=== PATIENT | female | born 1945 | race Two or more races ===

== ENCOUNTER → 2016-10-23 | Outpatient (CLI) | payer OTHER ==
[2016-10-23 09:34] LABS: Basophils # (auto) 0.1 uL; Basophils % (auto) 0.9 % (0.0-2.0); DEFINITIVE VIEW TRANSMISSION; Eosinophils # (auto) 0.4 uL; Eosinophils % (auto) 7.4 % (0.0-7.0); Hematocrit 45.2 % (36.0-46.0); Lymphocytes # (auto) 1.8 uL; Lymphocytes % (auto) 31.1 % (10.0-50.0); Mean Corpuscular Hemoglobin 27.8 pg (28.0-32.0); Mean Corpuscular Volume 89.6 fL (80.0-100.0); Mean Platelet Volume 9.1 fL (7.4-10.4); Monocytes # (auto) 0.5 uL; Monocytes % (auto) 8.2 % (0.0-12.0); Neutrophils # (auto) 3.1 uL; Neutrophils % (auto) 52.4 % (37.0-80.0); Platelet Count (auto) 348 10^3/uL (140-450); Red Cell Distribution Width 15.9 % (11.6-16.0); White Blood Cell 5.9 10^3/uL (4.4-10.8)
[2016-10-23 09:37] LABS: Urine Bilirubin Negative (Negative); Urine Blood Negative /uL (Negative); Urine Color Yellow (Yellow); Urine Glucose Normal (Normal); Urine Ketone Negative (Negative); Urine Mucus FEW (None Seen); Urine Nitrite Negative (Negative); Urine RBC 3 /hpf (0 - 4); Urine Squamous Epithelial Cell MANY /hpf (<5); Urine Urobilinogen Normal (Negative)
[2016-10-23 10:03] LABS: BUN/Creatinine Ratio 20.7; Bilirubin, Total 0.3 mg/dL (0.2-1.0); Calcium 9.1 mg/dL (8.5-10.1); Potassium 4.4 mmol/L (3.5-5.1); Total Protein 7.8 g/dL (6.4-8.2)
== END | disposition home or self-care (01) ==
LOC: LAB 08:34
PROVIDERS: ATTEND Internal Medicine
DX: I10 Essential (primary) hypertension (principal); Z12.11 Encounter for screening for malignant neoplasm of colon; N25.81 Secondary hyperparathyroidism of renal origin; N18.3 Chronic kidney disease, stage 3 (moderate)
CPT/HCPCS: 36415; 80053; 80061; 81001; 82270; 83036; 84439; 84443; 85025

== ENCOUNTER → 2017-12-02 | Outpatient (CLI) | payer OTHER ==
[2017-12-02 08:21] LABS: Basophils # (auto) 0.1 uL; Basophils % (auto) 1.2 % (0.0-2.0); Eosinophils # (auto) 0.4 uL; Eosinophils % (auto) 6.7 % (0.0-7.0); Hematocrit 44.5 % (36.0-46.0); Hemoglobin 14.7 g/dL (12.2-16.2); Lymphocytes # (auto) 1.7 uL; Lymphocytes % (auto) 27.9 % (10.0-50.0); Mean Corpuscular Hemoglobin 29.5 pg (28.0-32.0); Mean Corpuscular Hgb Conc. 33.1 g/dL (32.0-36.0); Mean Corpuscular Volume 89.3 fL (80.0-100.0); Monocytes # (auto) 0.4 uL; Monocytes % (auto) 6.1 % (0.0-12.0); Neutrophils # (auto) 3.6 uL; Neutrophils % (auto) 58.1 % (37.0-80.0); Nucleated Red Blood Cells % 0.2 %; Platelet Count (auto) 285 10^3/uL (140-450); Red Blood Cells 4.99 10^6/uL (4.0-5.20); Red Cell Distribution Width 14.7 % (11.8-14.3); White Blood Cell 6.2 10^3/uL (4.4-10.8)
[2017-12-02 08:51] LABS: Albumin 4.1 g/dL (3.4-5.0); BUN/Creatinine Ratio 19.7; Bilirubin, Total 0.3 mg/dL (0.2-1.0); Calcium 9.1 mg/dL (8.5-10.1); Potassium 4.5 mmol/L (3.5-5.1); Total Protein 8.1 g/dL (6.4-8.2)
== END | disposition home or self-care (01) ==
LOC: LAB 07:26
PROVIDERS: ATTEND Physician Assistant
DX: Z00.01 Encounter for general adult medical examination with abnormal findings (principal); I10 Essential (primary) hypertension; E03.9 Hypothyroidism, unspecified; E78.2 Mixed hyperlipidemia; N25.81 Secondary hyperparathyroidism of renal origin; R73.03 Prediabetes
CPT/HCPCS: 36415; 80053; 80061; 82270; 83036; 84443; 85025

== ENCOUNTER → 2018-06-22 | Outpatient (CLI) | payer OTHER ==
[2018-06-22 08:08] LABS: Basophils # (auto) 0.1 uL; Basophils % (auto) 1.3 % (0.0-2.0); Eosinophils # (auto) 0.3 uL; Hematocrit 45.1 % (36.0-46.0); Lymphocytes # (auto) 1.4 uL; Lymphocytes % (auto) 29.2 % (10.0-50.0); Mean Corpuscular Hemoglobin 29.5 pg (28.0-32.0); Mean Corpuscular Hgb Conc. 33.4 g/dL (32.0-36.0); Mean Corpuscular Volume 88.5 fL (80.0-100.0); Monocytes # (auto) 0.4 uL; Monocytes % (auto) 8.2 % (0.0-12.0); Neutrophils # (auto) 2.7 uL; Neutrophils % (auto) 54.3 % (37.0-80.0); Nucleated Red Blood Cells % 0.1 %; Platelet Count (auto) 279 10^3/uL (140-450); Red Blood Cells 5.09 10^6/uL (4.0-5.20); Red Cell Distribution Width 14.9 % (11.8-14.3); White Blood Cell 4.9 10^3/uL (4.4-10.8)
[2018-06-22 08:36] LABS: Calcium 9.5 mg/dL (8.5-10.1); Potassium 4.6 mmol/L (3.5-5.1)
[2018-06-22 08:42] LABS: Albumin 3.9 g/dL (3.4-5.0); BUN/Creatinine Ratio 16.5; Bilirubin, Total 0.6 mg/dL (0.2-1.0); Total Protein 7.8 g/dL (6.4-8.2)
== END | disposition home or self-care (01) ==
LOC: LAB 07:56
PROVIDERS: ATTEND Physician Assistant
DX: E03.9 Hypothyroidism, unspecified (principal); E79.0 Hyperuricemia without signs of inflammatory arthritis and tophaceous disease; E78.2 Mixed hyperlipidemia; R73.03 Prediabetes; I12.9 Hypertensive chronic kidney disease with stage 1 through stage 4 chronic kidney disease, or unspecified chronic kidney disease; N18.3 Chronic kidney disease, stage 3 (moderate)
CPT/HCPCS: 36415; 80053; 80061; 83036; 84443; 84550; 85025

== ENCOUNTER → 2018-12-19 | Outpatient (CLI) | payer OTHER ==
[2018-12-19 12:51] LABS: Free T4 (Free Thyroxine) 1.59 ng/dL (0.89-1.76); T3 Total 0.77 ng/mL (0.60-1.81)
== END | disposition home or self-care (01) ==
LOC: LAB 10:29
PROVIDERS: ATTEND Physician Assistant
DX: E78.2 Mixed hyperlipidemia (principal); E03.9 Hypothyroidism, unspecified; E55.9 Vitamin D deficiency, unspecified
CPT/HCPCS: 36415; 82306; 83735; 84439; 84443; 84480

== ENCOUNTER → 2019-02-27 | Outpatient (CLI) | payer OTHER | END | disposition home or self-care (01) | LOC: LAB 14:06 | PROVIDERS: ATTEND Physician Assistant | DX: Z12.11 Encounter for screening for malignant neoplasm of colon (principal) | CPT/HCPCS: 82270 ==

== ENCOUNTER → 2019-10-23 | Outpatient (CLI) | payer OTHER ==
[2019-10-23 07:49] LABS: Basophils # (auto) 0 uL; Basophils % (auto) 0.9 % (0.0-2.0); Eosinophils # (auto) 0.3 uL; Eosinophils % (auto) 6.3 % (0.0-7.0); Hematocrit 45.5 % (36.0-46.0); Hemoglobin 15.3 g/dL (12.2-16.2); Lymphocytes # (auto) 1.4 uL; Lymphocytes % (auto) 26.1 % (10.0-50.0); Mean Corpuscular Hemoglobin 30.5 pg (28.0-32.0); Mean Corpuscular Hgb Conc. 33.7 g/dL (32.0-36.0); Mean Corpuscular Volume 90.4 fL (80.0-100.0); Monocytes # (auto) 0.4 uL; Neutrophils # (auto) 3.2 uL; Neutrophils % (auto) 58.7 % (37.0-80.0); Platelet Count (auto) 265 10^3/uL (140-450); Red Blood Cells 5.03 10^6/uL (4.0-5.20); Red Cell Distribution Width 14.4 % (11.8-14.3); White Blood Cell 5.5 10^3/uL (4.4-10.8)
[2019-10-23 08:31] LABS: Albumin 3.9 g/dL (3.4-5.0); Calcium 9.5 mg/dL (8.5-10.1); Potassium 4.2 mmol/L (3.5-5.1); Uric Acid 7.6 mg/dL (2.6-6.0)
[2019-10-23 08:36] LABS: BUN/Creatinine Ratio 19.1; Bilirubin, Total 0.5 mg/dL (0.2-1.0); Total Protein 7.8 g/dL (6.4-8.2)
[2019-10-23 09:25] LABS: Free T4 (Free Thyroxine) 1.35 ng/dL (0.89-1.76); T3 Total 0.94 ng/mL (0.60-1.81)
== END | disposition home or self-care (01) ==
LOC: LAB 07:31
PROVIDERS: ATTEND Physician Assistant
DX: I12.9 Hypertensive chronic kidney disease with stage 1 through stage 4 chronic kidney disease, or unspecified chronic kidney disease (principal); N18.3 Chronic kidney disease, stage 3 (moderate); E03.9 Hypothyroidism, unspecified; E55.9 Vitamin D deficiency, unspecified; E79.0 Hyperuricemia without signs of inflammatory arthritis and tophaceous disease; E78.2 Mixed hyperlipidemia
CPT/HCPCS: 36415; 80053; 80061; 82306; 84439; 84443; 84480; 84550; 85025

== ENCOUNTER → 2021-11-10 | Outpatient (CLI) | payer OTHER ==
[2021-11-10 10:35] LABS: Urine WBC None Seen /hpf (0 - 5)
[2021-11-10 11:01] LABS: Potassium 3.9 mmol/L (3.5-5.1)
[2021-11-10 11:03] LABS: INR 0.99 (0.9-1.15); Partial Thromboplastin Time 27.6 sec (23.6-33.0)
[2021-11-10 11:11] LABS: Albumin 3.7 g/dL (3.4-5.0); BUN/Creatinine Ratio 19.6; Calcium 9.1 mg/dL (8.5-10.1)
[2021-11-10 11:14] LABS: Bilirubin, Total 0.4 mg/dL (0.2-1.0); Total Protein 7.1 g/dL (6.4-8.2)
[2021-11-10 11:15] LABS: Urine Bacteria NONE SEEN /hpf (None Seen); Urine Blood Negative /uL (Negative); Urine Specific Gravity 1.016 (1.001-1.035)
[2021-11-10 11:26] LABS: Basophils # (auto) 0 10 ^3/uL (0-0.2); Basophils % (auto) 0.8 % (0.0-2.0); Eosinophils # (auto) 0.3 10 ^3/uL (0-0.8); Eosinophils % (auto) 6.6 % (0.0-7.0); Hematocrit 42.1 % (36.0-46.0); Lymphocytes # (auto) 1.4 10 ^3/uL (0.4-5.4); Lymphocytes % (auto) 28.9 % (10.0-50.0); Mean Corpuscular Hemoglobin 29.8 pg (28.0-32.0); Mean Corpuscular Hgb Conc. 33.3 g/dL (32.0-36.0); Mean Corpuscular Volume 89.5 fL (80.0-100.0); Monocytes # (auto) 0.4 10 ^3/uL (0-1.3); Neutrophils # (auto) 2.6 10 ^3/uL (1.6-8.6); Neutrophils % (auto) 54.7 % (37.0-80.0); Nucleated Red Blood Cells % 0.1 %; Red Cell Distribution Width 14.2 % (11.8-14.3); White Blood Cell 4.8 10^3/uL (4.4-10.8)
== END | disposition home or self-care (01) ==
LOC: LAB 09:31
DX: H25.11 Age-related nuclear cataract, right eye (principal)
CPT/HCPCS: 36415; 80053; 81001; 82306; 85025; 85610; 85730

== ENCOUNTER → 2022-06-29 | Outpatient (CLI) | payer OTHER ==
[2022-06-29 08:37] LABS: Basophils # (auto) 0.1 10 ^3/uL (0-0.2); Basophils % (auto) 1.2 % (0.0-2.0); Eosinophils # (auto) 0.3 10 ^3/uL (0-0.8); Eosinophils % (auto) 5.4 % (0.0-7.0); Hematocrit 46.2 % (36.0-46.0); Hemoglobin 15.2 g/dL (12.2-16.2); Lymphocytes # (auto) 1.7 10 ^3/uL (0.4-5.4); Lymphocytes % (auto) 29.7 % (10.0-50.0); Mean Corpuscular Hemoglobin 29.7 pg (28.0-32.0); Mean Corpuscular Hgb Conc. 32.9 g/dL (32.0-36.0); Mean Corpuscular Volume 90.4 fL (80.0-100.0); Monocytes # (auto) 0.4 10 ^3/uL (0-1.3); Monocytes % (auto) 7.1 % (0.0-12.0); Neutrophils # (auto) 3.2 10 ^3/uL (1.6-8.6); Neutrophils % (auto) 56.6 % (37.0-80.0); Nucleated Red Blood Cells % 0.2 %; Red Blood Cells 5.12 10^6/uL (4.0-5.20); Red Cell Distribution Width 14.4 % (11.8-14.3); White Blood Cell 5.7 10^3/uL (4.4-10.8)
[2022-06-29 09:30] LABS: Calcium 9.2 mg/dL (8.5-10.1); Potassium 4.5 mmol/L (3.5-5.1)
[2022-06-29 09:42] LABS: Albumin 3.7 g/dL (3.4-5.0); BUN/Creatinine Ratio 15.6; Bilirubin, Total 0.5 mg/dL (0.2-1.0); Total Protein 7.3 g/dL (6.4-8.2)
== END | disposition home or self-care (01) ==
LOC: LAB 08:20
PROVIDERS: ATTEND Nurse Practitioner Family
DX: Z00.00 Encounter for general adult medical examination without abnormal findings (principal); I12.9 Hypertensive chronic kidney disease with stage 1 through stage 4 chronic kidney disease, or unspecified chronic kidney disease; N18.30 Chronic kidney disease, stage 3 unspecified; E03.9 Hypothyroidism, unspecified; E78.5 Hyperlipidemia, unspecified; R73.03 Prediabetes
CPT/HCPCS: 36415; 80053; 80061; 82306; 83036; 84443; 85025

== ENCOUNTER → 2023-06-09 | Outpatient (CLI) | payer BC ==
[2023-06-09 08:34] LABS: Basophils # (auto) 0.1 10 ^3/uL (0-0.2); Eosinophils # (auto) 0.4 10 ^3/uL (0-0.8); Eosinophils % (auto) 6.1 % (0.0-7.0); Hematocrit 45.7 % (36.0-46.0); Hemoglobin 15.1 g/dL (12.2-16.2); Lymphocytes # (auto) 1.7 10 ^3/uL (0.4-5.4); Lymphocytes % (auto) 26.6 % (10.0-50.0); Mean Corpuscular Hemoglobin 28.9 pg (28.0-32.0); Mean Corpuscular Volume 87.7 fL (80.0-100.0); Monocytes # (auto) 0.5 10 ^3/uL (0-1.3); Monocytes % (auto) 7.8 % (0.0-12.0); Neutrophils # (auto) 3.7 10 ^3/uL (1.6-8.6); Neutrophils % (auto) 58.5 % (37.0-80.0); Nucleated Red Blood Cells % 0.2 %; Red Blood Cells 5.21 10^6/uL (4.0-5.20); Red Cell Distribution Width 15.7 % (11.8-14.3); White Blood Cell 6.3 10^3/uL (4.4-10.8)
[2023-06-09 09:00] LABS: Creatinine, Urine 173.03 mg/dL (30.0-125.0)
[2023-06-09 09:03] LABS: Alanine Aminotransferase 20 U/L (7-40); Alkaline Phosphatase 74 U/L (46-116); Anion Gap 8 (5-15); BUN/Creatinine Ratio 13.9 (10.0-20.0); Blood Urea Nitrogen 15 mg/dL (9-23); Calcium 9.8 mg/dL (8.5-10.1); Carbon Dioxide 28 mmol/L (20-30); Chloride 103 mmol/L (98-107); Glucose 104 mg/dL (74-106); LDL Cholesterol 98 mg/dL (< 100); Micro Albumin < 3.0 mg/L (<30.0); Potassium 4.4 mmol/L (3.5-5.1); Sodium 139 mmol/L (136-145); Triglycerides 125 mg/dL (< 150)
[2023-06-09 09:04] LABS: Albumin 4.4 g/dL (3.2-4.8); Aspartate Aminotransferase 20 U/L (13-40)
[2023-06-09 09:05] LABS: Bilirubin, Total 0.5 mg/dL (0.2-1.0); Cholesterol 164 mg/dL (< 200); HDL Cholesterol 44 mg/dL (40-59); Total Protein 7.2 g/dL (5.7-8.2)
== END | disposition home or self-care (01) ==
LOC: LAB 08:16
PROVIDERS: ATTEND Nurse Practitioner Family
DX: Z00.01 Encounter for general adult medical examination with abnormal findings (principal); I12.9 Hypertensive chronic kidney disease with stage 1 through stage 4 chronic kidney disease, or unspecified chronic kidney disease; N18.31 Chronic kidney disease, stage 3a; E55.9 Vitamin D deficiency, unspecified; R73.03 Prediabetes
CPT/HCPCS: 36415; 80053; 80061; 82043; 82306; 82570; 83036; 84439; 84443; 85025

== ENCOUNTER → 2024-07-05 | Outpatient (CLI) | payer BC ==
[2024-07-05 13:49] LABS: Basophils # (auto) 0.1 10 ^3/uL (0-0.2); Basophils % (auto) 1.1 % (0.0-2.0); Eosinophils # (auto) 0.2 10 ^3/uL (0-0.8); Hematocrit 44.9 % (36.0-46.0); Hemoglobin 15.1 g/dL (12.2-16.2); Lymphocytes # (auto) 1.3 10 ^3/uL (0.4-5.4); Lymphocytes % (auto) 13.4 % (10.0-50.0); Mean Corpuscular Hemoglobin 29.8 pg (28.0-32.0); Mean Corpuscular Hgb Conc. 33.7 g/dL (32.0-36.0); Mean Corpuscular Volume 88.5 fL (80.0-100.0); Monocytes # (auto) 0.7 10 ^3/uL (0-1.3); Monocytes % (auto) 7.8 % (0.0-12.0); Neutrophils # (auto) 7.2 10 ^3/uL (1.6-8.6); Neutrophils % (auto) 75.7 % (37.0-80.0); Platelet Count (auto) 314 10^3/uL (140-450); Red Blood Cells 5.08 10^6/uL (4.0-5.20); White Blood Cell 9.5 10^3/uL (4.4-10.8)
[2024-07-05 14:46] LABS: Alanine Aminotransferase 82 U/L (7-40); Albumin 4.4 g/dL (3.2-4.8); Alkaline Phosphatase 389 U/L (46-116); Anion Gap 8 (5-15); Aspartate Aminotransferase 125 U/L (13-40); BUN/Creatinine Ratio 18.2 (10.0-20.0); Bilirubin, Total 0.6 mg/dL (0.2-1.0); Blood Urea Nitrogen 18 mg/dL (9-23); Calcium 10.4 mg/dL (8.7-10.4); Carbon Dioxide 26 mmol/L (20-31); Chloride 103 mmol/L (98-107); Cholesterol 183 mg/dL (< 200); Glucose 107 mg/dL (74-106); HDL Cholesterol 62 mg/dL (40-59); LDL Cholesterol 95 mg/dL (< 100); Potassium 4.3 mmol/L (3.5-5.1); Sodium 137 mmol/L (136-145); Triglycerides 148 mg/dL (< 150)
[2024-07-05 14:47] LABS: Total Protein 7.5 g/dL (5.7-8.2)
== END | disposition home or self-care (01) ==
LOC: LAB 13:22
PROVIDERS: ATTEND Nurse Practitioner Family
DX: I12.9 Hypertensive chronic kidney disease with stage 1 through stage 4 chronic kidney disease, or unspecified chronic kidney disease (principal); N18.31 Chronic kidney disease, stage 3a; R73.03 Prediabetes; E03.9 Hypothyroidism, unspecified; E55.9 Vitamin D deficiency, unspecified
CPT/HCPCS: 36415; 80053; 80061; 82043; 82306; 83036; 84443; 85025

== ENCOUNTER → 2024-07-19 | Outpatient (CLI) | payer BC ==
[2024-07-19 09:40] LABS: Alanine Aminotransferase 86 U/L (7-40); Albumin 4.4 g/dL (3.2-4.8); Alkaline Phosphatase 472 U/L (46-116); Anion Gap 8 (5-15); Aspartate Aminotransferase 138 U/L (13-40); BUN/Creatinine Ratio 21.1 (10.0-20.0); Blood Urea Nitrogen 20 mg/dL (9-23); Calcium 10.8 mg/dL (8.7-10.4); Carbon Dioxide 29 mmol/L (20-31); Chloride 102 mmol/L (98-107); Glucose 124 mg/dL (74-106); Potassium 3.6 mmol/L (3.5-5.1); Sodium 139 mmol/L (136-145)
[2024-07-19 09:41] LABS: Bilirubin, Direct 0.4 mg/dL (<0.3); Bilirubin, Total 0.9 mg/dL (0.2-1.0); Total Protein 7.6 g/dL (5.7-8.2)
[2024-07-20 09:23] LABS: Hepatitis B Surface Antigen Negative (Negative)
[2024-07-20 09:42] LABS: Hepatitis A Ab IgM Negative
[2024-07-20 09:44] LABS: Hepatitis B Core IgM Negative
[2024-07-20 09:45] LABS: Hepatitis C Antibody Negative (Negative)
== END | disposition home or self-care (01) ==
LOC: LAB 08:42
PROVIDERS: ATTEND Nurse Practitioner Family
DX: R94.5 Abnormal results of liver function studies (principal)
CPT/HCPCS: 36415; 80048; 80076; 86705; 86709; 86803; 87340

== ENCOUNTER → 2024-09-08 | Outpatient (CLI) | payer BC ==
[2024-09-08 12:11] LABS: Anion Gap 8 (5-15); BUN/Creatinine Ratio 17.9 (10.0-20.0); Blood Urea Nitrogen 21 mg/dL (9-23); Carbon Dioxide 29 mmol/L (20-31); Chloride 99 mmol/L (98-107); LDL Cholesterol 94 mg/dL (< 100); Sodium 136 mmol/L (136-145); Triglycerides 110 mg/dL (< 150)
[2024-09-08 12:12] LABS: Albumin 4.1 g/dL (3.2-4.8); Cholesterol 164 mg/dL (< 200); HDL Cholesterol 44 mg/dL (40-59)
[2024-09-08 12:26] LABS: Alanine Aminotransferase 64 U/L (7-40); Alkaline Phosphatase 590 U/L (46-116); Aspartate Aminotransferase 200 U/L (13-40); Calcium 12.4 mg/dL (8.7-10.4); Glucose 158 mg/dL (74-106); Potassium 3.3 mmol/L (3.5-5.1)
== END | disposition home or self-care (01) ==
LOC: LAB 10:57
PROVIDERS: ATTEND Nurse Practitioner Family
DX: E78.5 Hyperlipidemia, unspecified (principal)
CPT/HCPCS: 36415; 80053; 80061

== ENCOUNTER 2024-09-23 10:02 | Inpatient (IN) | payer BC ==
[~2024-09-23] VITALS: Ht 157.5 cm; Wt 74.1 kg
--- NOTE | 2024-09-23 10:24 | ED.PDOC ---
History of Present Illness HPI Comments This 78-year-old female with a past medical history of hypertension and a previous stroke was found down in her home. Last known well time was 3 days ago. The patient he was unsure what has happened. Last thing she remembers was sitting down. Her only complaint now is feeling generally unwell and 30s. She denies hungry. She was no pain such as headaches, vision changes, chest pain, flank pain, abdominal pain, dysuria, or frequency. Denies modifying factors. Denies radiation of her symptoms. Fourteen systems reviewed and negative except as mentioned above Chief Complaint: ALOC Time Seen by MD: 10:04 Allergies: Coded Allergies: UNOBTAINABLE (Unverified , 09/23/24) Information Source: Patient Mode of Arrival: EMS Severity: Moderate Timing: Days Duration: Since onset Past Medical History PAST MEDICAL HISTORY: CVA, HTN, Liver Surgical History: Denies all surgeries Family History Family History: Reviewed,noncontributory to illness Social History Smoker: Non-Smoker Constitutional: reports: fatigue, malaise, weakness; denies: chills, diaphoresis, fever EENTM: denies: blurred vision, double vision, ear bleeding, ear discharge, ear pain, eye pain, eye redness, hearing loss, mouth pain, mouth swelling, nasal discharge, nose bleeding, nose congestion, nose pain, photophobia, throat pain Respiratory: denies: cough, SOB at rest, shortness of breath, stridor, wheezing Cardiovascular: denies: chest pain, dizzy spells, diaphoresis, edema Gastrointestinal: denies: abdomen distended, abdominal pain, constipated, diarrhea, difficulty swallowing, nausea, poor appetite, poor fluid intake, vomiting Genitourinary: denies: dysuria, frequency, hematuria Neurological: reports: weakness; denies: dizziness, fainting, headache, left sided numbness, left sided weakness, numbness, paresthesia, right sided numbness, right sided weakness, seizure, speech problems, tingling, tremors, others Musculoskeletal: denies: back pain, joint swelling, muscle pain, muscle stiffness Integumetry: denies: bruises, change in color, dryness, laceration, lumps, rash Psychiatric: denies: anxiety Physical Exam General Appearance: Mild Distress, Thin HEENT: Head (atraumatic, normocephalic), Normal ENT Inspection, Pharynx Normal Neck: Other (moves neck freely, no mengismus, supple) Respiratory: No Respiratory Distress, Normal Breath Sounds Cardiovascular: No Edema, Normal Peripheral Pulses, Regular Rate/Rhythm Breast Exam: Deferred Gastrointestinal: Normal Bowel Sounds, Other (soft, nd, no rebound/guarding) Genitalia: Deferred Pelvic: Deferred Rectal: Deferred Extremities: Normal inspection, Normal range of motion, Non-tender 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
--- NOTE | 2024-09-23 10:33 | DVH ---
EXAM: CT HEAD WITHOUT CONTRAST INDICATION: aloc TECHNIQUE: CT of the head without intravenous contrast. Radiation dose : 1. Head: CT Dose: CTDI volume is 52 mGy. Dose-length product is 835 mGy*cm The dose indicators for CT are the volume computed tomography (CT) dose index (CTDIvol) and the dose length product (DLP), and are measured in units of mGy and mGy-cm, respectively. These indicators are not patient dose, but values generated from the CT scanner acquisition factors. The report includes radiation exposure data for exposures received during this examination. COMPARISON: None FINDINGS: There is a.6 cm calcification posterior right frontal lobe without adjacent edema or mass effect. Fin dings may represent old granulomatous or traumatic changes. Further assessment with MRI imaging could be performed clinically indicated. No subdural hematoma. No intracranial hemorrhage. No extra-axial fluid collections. Partially empty c gisel. Moderate motion artifact. . IMPRESSION: 1. 6 cm calcification right frontal lobe posteriorly. 2. No intracranial hemorrhage or subdural hematoma 3. No hydrocephalus Radiation optimization: All CT scans at this facility use at least one of these dose optimization hien hniques: Automated exposure control mA and/or kV adjustment per patient size (includes targeted exams where dose is matched to clinical indication) or iterative reconstruction.
--- NOTE | 2024-09-23 10:37 | DVH ---
EXAM: XR Chest, 1 View CLINICAL INDICATION: aloc TECHNIQUE: Frontal view of the chest. COMPARISON: None FINDINGS: LUNGS AND PLEURAL SPACES: Left basilar atelectasis or pneumonia. No pneumothorax. HEART: Unremarkable. No cardiomegaly. MEDIASTINUM: Unremarkable. Normal mediastinal contour. BONES/JOINTS: Unremarkable. No acute fracture. OTHER FINDINGS: . . IMPRESSION: Left basilar atelectasis or pneumonia.
[2024-09-23] MEDS: SODIUM CHLORIDE 0.9% 1,000 ML IVB ONE (10:50)
[2024-09-23 10:57] LABS: Urine Bacteria None Seen /hpf (None Seen)
[2024-09-23 10:59] LABS: Basophils # (auto) 0 10 ^3/uL (0-0.2); Eosinophils # (auto) 0 10 ^3/uL (0-0.8); Mean Corpuscular Volume 86.5 fL (80.0-100.0); Monocytes # (auto) 1.1 10 ^3/uL (0-1.3)
[2024-09-23 11:00] LABS: Hematocrit 53.8 % (36.0-46.0); Hemoglobin 17.6 g/dL (12.2-16.2); Lymphocytes # (auto) 0.4 10 ^3/uL (0.4-5.4); Lymphocytes % (auto) 1.6 % (10.0-50.0); Mean Corpuscular Hemoglobin 28.3 pg (28.0-32.0); Mean Corpuscular Hgb Conc. 32.7 g/dL (32.0-36.0); Monocytes % (auto) 4.8 % (0.0-12.0); Neutrophils # (auto) 21.2 10 ^3/uL (1.6-8.6); Neutrophils % (auto) 93.6 % (37.0-80.0); Platelet Count (auto) 296 10^3/uL (140-450); Red Blood Cells 6.22 10^6/uL (4.0-5.20); Red Cell Distribution Width 16.7 % (11.8-14.3); White Blood Cell 22.7 10^3/uL (4.4-10.8)
[2024-09-23 11:21] LABS: Urine Blood TRACE /uL (Negative); Urine Clarity Turbid (Clear); Urine Color Yellow (Yellow); Urine Hyaline Cast MANY /lpf (0 - 2); Urine Mucus FEW (None Seen); Urine Protein, UAD 1+ (Negative); Urine Specific Gravity 1.021 (1.001-1.035); Urine Squamous Epithelial Cell FEW /hpf (<5); Urine Urobilinogen 4 mg/dL (Negative); Urine WBC 13 /hpf (0 - 5)
[2024-09-23 11:22] LABS: Albumin 4.2 g/dL (3.2-4.8); Anion Gap 15 (5-15); BUN/Creatinine Ratio 29.7 (10.0-20.0); Chloride 105 mmol/L (98-107); Glucose 78 mg/dL (74-106); INR 1.3 (0.9-1.15); Magnesium 2.6 mg/dL (1.6-2.6); Partial Thromboplastin Time 28.6 SEC (24.5-34.5); Potassium 3.9 mmol/L (3.5-5.1); Prothrombin Time 13.4 sec (9.3-11.8); Sodium 140 mmol/L (136-145)
[2024-09-23 11:23] LABS: Total Protein 7.5 g/dL (5.7-8.2)
[2024-09-23 11:30] LABS: Alanine Aminotransferase 97 U/L (7-40); Alkaline Phosphatase 608 U/L (46-116); Aspartate Aminotransferase 420 U/L (13-40); Bilirubin, Total 2.5 mg/dL (0.2-1.0); Blood Alcohol < 3.0 mg/dL (<10); Blood Urea Nitrogen 52 mg/dL (9-23); Carbon Dioxide 20 mmol/L (20-31)
[2024-09-23 11:31] LABS: Calcium 13.5 mg/dL (8.7-10.4)
[2024-09-23 11:32] LABS: Amphetamine Screen, Urine Neg (NEGATIVE); Barbiturate Scree,Urine Neg (NEGATIVE); Benzodiazephine Screen, Urine Neg (NEGATIVE); Cannabinoid Screen, Urine Neg (NEGATIVE); Cocaine Screen, Urine Neg (NEGATIVE); Opiate Scree,Urine Neg (NEGATIVE); Phencyclidine Screen, Urine Neg (NEGATIVE)
[2024-09-23] MEDS: PIPERACILLIN-TAZOB 3.375GM 100 ML IV ONE (11:43)
[2024-09-23] MEDS: VANCOMYCIN 1GM/250ML KIT 250 ML IV ONE (11:43)
[2024-09-23 11:50] VITALS: PULSE 92; RESP 16; O2SAT 93
[2024-09-23] MEDS: SODIUM CHLORIDE 0.9% 2,000 ML IV ONE (14:33)
[2024-09-23] MEDS ORDERED: ONDANSETRON HCL 4 MG/2 ML VIAL IV PRN (16:15)
[2024-09-23] MEDS ORDERED: ACETAMINOPHEN 325 MG TAB PO PRN (16:15)
--- NOTE | 2024-09-23 16:30 | DVHHP2 ---
History of Present Illness Reason for Visit: ALOC History of Present Illness Cherie Killian is a 78-year-old female with past medical history of hypertension, CVA, and liver disease who presents to the ED with ALOC. Patient was found down on the bedroom floor by ems at 10am, last known well time 3 days ago. However, patient reports that she was sitting in her living room talking to a friend before she blacked out. Patient states that she was sick recently. Patient denies chest pain, abdominal pain, shortness of breath, nausea, vomiting, diarrhea, fever, and chills. 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 Past Medical History Liver disease Breast cancer Past Surgical History: Mastectomy Family History: Cancer, Other (Mom with breast cancer and dad with [place]) Smoke: Quit ALCOHOL: none Drugs: None Lives: Alone Domestic Violence: Neg Review of Systems Neurological: Confusion Allergies: Coded Allergies: NO KNOWN ALLERGIES (Unverified , 09/23/24) Medications Current Medications Medications Dose Ordered Sig/Coy Route Start Time Stop Time Status Last Admin Dose Admin Ceftriaxone Sodium 50 ml @ 100 mls/hr DAILY@09 IV 09/24/24 09:00 UNV Azithromycin 250 ml @ 125 mls/hr DAILY IV 09/24/24 10:00 UNV Sodium Chloride 1,000 ml @ 70 mls/hr [id number] IV 09/23/24 16:15 UNV Ondansetron HCl 4 mg Q4HP PRN IV 09/23/24 16:15 UNV Acetaminophen 650 mg Q6HP PRN PO 09/23/24 16:15 UNV Exam Vital Signs Vital Signs Date Time Temp Pulse Resp B/P (MAP) Pulse Ox O2 Delivery O2 Flow Rate FiO2 09/23/24 12:42 96 09/23/24 12:03 96.8 21 133/65 (87) 97 96.8 09/23/24 11:50 Nasal Cannula* 2 28 General Appearance: Alert, Cooperative, No acute distress, Other (A&O x2 to person and date of ) HEENT: Atraumatic, PERRLA, EOMI, Mucous membr. moist/pink Respiratory: Normal air movement Cardiovascular: Regular rate, Normal S1, Normal S2, No murmurs Abdominal: Normal bowel sounds, Soft, No tenderness, No hepatospenomegaly, No masses Extremities: No clubbing, No edema, No tenderness/swelling Skin: No significant lesion Neuro: Sensation intact Psych/Mental Status: Mental status NL Labs/Xrays Labs Test 09/23/24 13:37 09/23/24 10:45 09/23/24 00:00 Range/Units Lactic Acid Level 5.0 *H 0.4-2.0 mmol/L Troponin I High Sensitivity 22 </=34 ng/L White Blood Count 22.7 H 4.4-10.8 10^3/uL Red Blood Count 6.22 H 4.0-5.20 10^6/uL Hemoglobin 17.6 H 12.2-16.2 g/dL Hematocrit 53.8 H 36.0-46.0 % Mean Corpuscular Volume 86.5 80.0-100.0 fL Mean Corpuscular Hemoglobin 28.3 28.0-32.0 pg Mean Corpuscular Hemoglobin Concent 32.7 32.0-36.0 g/dL Red Cell Distribution Width 16.7 H 11.8-14.3 % Platelet Count 296 140-450 10^3/uL Mean Platelet Volume 9.2 6.9-10.8 fL Neutrophils (%) (Auto) 93.6 H 37.0-80.0 % Lymphocytes (%) (Auto) 1.6 L 10.0-50.0 % Monocytes (%) (Auto) 4.8 0.0-12.0 % Eosinophils (%) (Auto) 0.0 0.0-7.0 % Basophils (%) (Auto) 0.0 0.0-2.0 % Neutrophils # (Auto) 21.2 H 1.6-8.6 10 ^3/uL Lymphocytes # (Auto) 0.4 0.4-5.4 10 ^3/uL Monocytes # (Auto) 1.1 0-1.3 10 ^3/uL Eosinophils # (Auto) 0 0-0.8 10 ^3/uL Basophils # (Auto) 0 0-0.2 10 ^3/uL Nucleated Red Blood Cells 0.0 % Prothrombin Time 13.4 H 9.3-11.8 sec Prothrombin Time INR 1.30 H 0.9-1.15 Activated Partial Thromboplast Time 28.6 24.5-34.5 SEC D-Dimer, Quantitative 7.12 H 0.0-0.49 mg/L FEU Sodium Level 140 136-145 mmol/L Potassium Level 3.9 3.5-5.1 mmol/L Chloride Level 105 98-107 mmol/L Carbon Dioxide Level 20 20-31 mmol/L Anion Gap 15 5-15 Blood Urea Nitrogen 52 H 9-23 mg/dL Creatinine 1.75 H 0.550-1.02 mg/dL Glomerular Filtration Rate Calc 30 >90 mL/min BUN/Creatinine Ratio 29.7 H 10.0-20.0 Serum Glucose 78 74-106 mg/dL Calcium Level 13.5 *H 8.7-10.4 mg/dL Magnesium Level 2.6 1.6-2.6 mg/dL Total Bilirubin 2.5 H 0.2-1.0 mg/dL Aspartate Amino Transferase (AST) 420 H 13-40 U/L Alanine Aminotransferase (ALT) 97 H 7-40 U/L Alkaline Phosphatase 608 H 46-116 U/L Ammonia < 10 L 11-32 umol/L Total Protein 7.5 5.7-8.2 g/dL Albumin 4.2 3.2-4.8 g/dL Beta-Hydroxybutyric Acid 2.376 H < 0.4 mmol/L Plasma/Serum Blood Alcohol < 3.0 <10 mg/dL Urine Color Yellow Yellow Urine Clarity Turbid H Clear Urine pH 5.0 5.0-9.0 Urine Specific [place] 1.021 1.001-1.035 Urine Protein 1+ H Negative Urine Ketones Negative Negative Urine Blood Trace H Negative /uL Urine Nitrite Negative Negative Urine Bilirubin 1+ H Negative Urine Urobilinogen 4 H Negative mg/dL Urine Leukocyte Esterase Negative Negative /uL Urine RBC 7 0 - 4 /hpf Urine WBC 13 0 - 5 /hpf Urine Squamous Epithelial Cells Few <5 /hpf Urine Bacteria None seen None Seen /hpf Urine Hyaline Casts Many 0 - 2 /lpf Urine Mucus Few None Seen Urine Glucose Normal Normal mg/dL Urine Opiates Screen Neg NEGATIVE Urine Fentanyl Screen Neg NEGATIVE Urine Barbiturates Screen Neg NEGATIVE Urine Phencyclidine Screen Neg NEGATIVE Urine Amphetamines Screen Neg NEGATIVE Urine Benzodiazepines Screen Neg NEGATIVE Urine Cocaine Screen Neg NEGATIVE Urine Cannabinoids Screen Neg NEGATIVE EXAM: CT HEAD WITHOUT CONTRAST INDICATION: aloc TECHNIQUE: CT of the head without intravenous contrast. Radiation dose : 1. Head: CT Dose: CTDI volume is 52 mGy. Dose-length product is 835 mGy*cm The dose indicators for CT are the volume computed tomography (CT) dose index (CTDIvol) and the dose length product (DLP), and are measured in units of mGy and mGy-cm, respectively. These indicators are not patient dose, but values generated from the CT scanner acquisition factors. The report includes radiation exposure data for exposures received during this examination. COMPARISON: None FINDINGS: There is a.6 cm calcification posterior right frontal lobe without adjacent edema or mass effect. Findings may represent old granulomatous or traumatic changes. Further assessment with MRI imaging could be performed clinically indicated. No subdural hematoma. No intracranial hemorrhage. No extra-axial fluid collections. Partially empty torri. Moderate motion artifact. . IMPRESSION: 1. 6 cm calcification right frontal lobe posteriorly. 2. No intracranial hemorrhage or subdural hematoma 3. No hydrocephalus EXAM: XR Chest, 1 View CLINICAL INDICATION: aloc TECHNIQUE: Frontal view of the chest. COMPARISON: None FINDINGS: LUNGS AND PLEURAL SPACES: Left basilar atelectasis or pneumonia. No pneumothorax. HEART: Unremarkable. No cardiomegaly. MEDIASTINUM: Unremarkable. Normal mediastinal contour. BONES/JOINTS: Unremarkable. No acute fracture. OTHER FINDINGS: . . IMPRESSION: Left basilar atelectasis or pneumonia. Bilateral lower extremity venous duplex Clinical History: r/o pe Comparison: None Technique: Duplex Doppler evaluation of the deep venous systems of both lower extremities from the common femoral veins to the popliteal veins including color Doppler and spectral/pulsed waveform analysis was performed. Findings: RIGHT SIDE: The common femoral vein demonstrates appropriate compressibility and waveform variability. There is compressibility/patency of the great saphenous vein at the proximal thigh. The femoral vein demonstrates appropriate compressibility and waveform variability. The deep femoral vein demonstrates appropriate compressibility and waveform variability. The popliteal vein demonstrates appropriate compressibility and waveform variability. There is normal compressibility at the tibioperoneal trunk. LEFT SIDE: The common femoral vein demonstrates appropriate compressibility and waveform variability. There is compressibility/patency of the great saphenous vein at the proximal thigh. The femoral vein demonstrates appropriate compressibility and waveform variability. The deep femoral vein demonstrates appropriate compressibility and waveform variability. The popliteal vein demonstrates appropriate compressibility and waveform variability. There is normal compressibility at the tibioperoneal trunk. Impression: No right or left femoropopliteal venous thrombosis. Assessment/Plan Assessment/Plan Assessment/Plan: Lactic acidosis likely due to pneumonia Sepsis likely secondary to pneumonia IV Abx - ceftriaxone and azithromycin Acute encephalopathy Proteinuria Transaminitis Labs A.m. labs CT head NS 3L given in ED IV antibiotics Zosyn and vancomycin given ED Diet Acetone Ammonia EKG Troponin negative x2 Blood alcohol ABG Blood culture Elevated D-dimer Drug screen Chest x-ray UA PT/PTT Lactic CTA chest Ultrasound bilateral lower extremity IV antibiotics-ceftriaxone + azithromycin Lipase Hepatitis panel GI consult branch services manager consult Chronic hypertension Continue home meds History of CVA Monitor History of liver disease Follow up outpatient with PCP FEN/PPX IVf Diet DVT ppx - lovenox? 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 Home medications reconciled Plan discussed with: Patient, Son My Orders Orders - LOCO MORALES Procedure Category Date Status Time Bilat Lower Dvt US 09/23/24 Taken 15:00 Lorazepam 2mg/Ml Inj PHA 09/23/24 Logged (Ativan Inj) 16:15 Ceftriaxone 1gm/50ml PHA 09/24/24 Logged D5w (Rocephin) 09:00 Ceftriaxone 1gm/50ml PHA 09/23/24 Logged D5w (Rocephin) 16:15 Azithromycin 500mg/ PHA 09/24/24 Logged 250ml (Zithromax 50 10:00 Azithromycin 500mg/ PHA 09/23/24 Logged 250ml (Zithromax 50 16:15 Allergies ANDREA 09/23/24 In Process 16:04 Code Status CODE 09/23/24 Transmitted 16:04 Sodium Chloride 0.9% PHA 09/23/24 Logged 16:15 Ondansetron Hcl PHA 09/23/24 Logged (Zofran) 16:15 Complete Blood Count LAB 09/24/24 Verified 04:00 Comprehensive LAB 09/24/24 Verified Metabolic Panel 04:00 Cardiac DIET 09/23/24 Transmitted Diet-2gna,Lofat,Lochol Dinner Acetaminophen Tablet PHA 09/23/24 Logged (Tylenol Tablet) 16:15 Date of Service: Sep 23, 2024 Billing Provider: LOCO MORALES Common Visit Codes: [id number] INP/OBS CARE (HIGH) LOCO MORALES Sep 23, 2024 16:30
--- NOTE | 2024-09-23 16:36 | DVH ---
Bilateral lower extremity venous duplex Clinical History: r/o pe Comparison: None Technique: Duplex Doppler evaluation of the deep venous systems of both lower extremities from the common femora l veins to the popliteal veins including color Doppler and spectral/pulsed waveform analysis was perf ormed. Findings: RIGHT SIDE: The common femoral vein demonstrates appropriate compressibility and waveform variability. There is compressibility/patency of the great saphenous vein at the proximal thigh. The femoral vein demonstrates appropriate compressibility and waveform variability. The deep femoral vein demonstrates appropriate compressibility and waveform variability. The popliteal vein demonstrates appropriate compressibility and waveform variability. There is normal compressibility at the tibioperoneal trunk. LEFT SIDE: The common femoral vein demonstrates appropriate compressibility and waveform variability. There is compressibility/patency of the great saphenous vein at the proximal thigh. The femoral vein demonstrates appropriate compressibility and waveform variability. The deep femoral vein demonstrates appropriate compressibility and waveform variability. The popliteal vein demonstrates appropriate compressibility and waveform variability. There is normal compressibility at the tibioperoneal trunk. Impression: No right or left femoropopliteal venous thrombosis.
[2024-09-23] MEDS: LORazepam 2MG/ML-1ML VIAL IV ONE ×2 (16:37→17:02)
[2024-09-23] MEDS: SODIUM CHLORIDE 0.9% 1,000 ML IV SCH (16:41)
[2024-09-23] MEDS: cefTRIAXone 1GM/50ML D5W 50 ML IV ONE (16:41)
[2024-09-23] MEDS: AZITHROMYCIN 500MG/ 250ML 250 ML IV ONE (16:42)
[2024-09-23] MEDS: LORazepam 2MG/ML-1ML VIAL ONE (17:03)
--- NOTE | 2024-09-23 19:16 | ECG ---
[facility] Test Date: 2024-09-23 Test Time: 10:11:13 Pat Name: SHIV MICHAEL Department: ER Room: 0296 Gender: F Slasher: KARTHIKEYAN : 1945 Requested By: JIMMIE SCHULZ Order Number: [id number] Reading MD: Davian Hernandez Measurements Intervals [place] Rate: 97 P: 47 IA: 134 QRS: 71 QRSD: 99 T: -32 QT: 373 QTc: 474 Interpretive Statements Sinus rhythm Probable left atrial enlargement Nonspecific T abnormalities, inferior leads Electronically Signed On 09-24-2024 16:07:34 PST by Davian Hernandez Please click the below link to view image of tracing.
[2024-09-23] MEDS: IOHEXOL 350 MG/ML 100ML IJ ONE (19:18)
[2024-09-23 19:45] VITALS: PULSE 88; RESP 25; O2SAT 97
--- NOTE | 2024-09-23 19:57 | DVH ---
Procedure: CT CT ANGIO CHEST CONTRAST Reason for study/Clinical History: R/O PE Comparison Study: None available at time of dictation. Exam Date: 09/23/2024 06:51 PM Radiation Dose Information: CT Dose: CTDI volume is 18.94 mGy. Dose-length product is 580.13 mGy*cm Contrast: Type of contrast: OMNIPAQUE 350 Contrast inject: 59 ML Contrast wasted:0 TECHNIQUE: After the uneventful administration of intravenous contrast intravenously, CT imaging was performed through the chest. Coronal and sagittal reformations were performed by the technologist. Sagittal and coronal MIP images were created and submitted for analysis. FINDINGS: Lower Neck: Visualized portions of the thyroid gland are unremarkable. Aorta and Vasculature: Normal caliber of thoracic aorta. Lymph Nodes: No enlarged intrathoracic lymph nodes. Mediastinum: Heart size is normal. There is no pericardial effusion. Consolidated mass in the subcari nal region extending into the left hilum. Moderate size hiatal hernia Lungs: Consolidation in the subcarinal region extending into the left hilum Musculoskeletal: No acute osseous abnormality. Mild compression superior endplate of T10- T11. Upper abdomen: Multiple masses in the liver consistent with metastatic disease. IMPRESSION: 1. No findings of pulmonary emboli or pulmonary artery hypertension. 2. Infiltrate throughout the left lower lung field. 3. Consolidated soft tissue mass subcarinal region extending into the left hilum kasia for metastatic disease or adenopathy. 4. Multiple masses in the liver consistent with metastatic disease. All CT scans at this medical facility are performed using dose modulation techniques as appropriate t o a performed exam including the following: Automated exposure control was utilized; adjustment of th e MA and/or KV according to patient size; and use of iterative reconstruction technique. HS:Y
[2024-09-23 20:01] LABS: Hepatitis A Ab IgM Negative; Hepatitis B Core IgM Negative (Negative); Hepatitis B Surface Antigen Negative (Negative); Hepatitis C Antibody Negative (Negative)
[2024-09-23 22:51] VITALS: BP 132/67; PULSE 78; RESP 18; TEMP 97.8; O2SAT 100
[2024-09-24] MEDS ORDERED: GEMF-66 PO (02:09)
[2024-09-24] MEDS ORDERED: HYDR12.59 PO (02:09)
[2024-09-24] MEDS ORDERED: LISI40TA16 PO (02:09)
[2024-09-24] MEDS ORDERED: AMLO1TAB22 PO (02:09)
[2024-09-24] MEDS ORDERED: LEVO100T8 PO (02:09)
[2024-09-24 05:00] VITALS: BP 131/65; PULSE 95; RESP 20; TEMP 97.9; O2SAT 100
[2024-09-24 07:49] LABS: Anion Gap 15 (5-15); BUN/Creatinine Ratio 38.1 (10.0-20.0); Basophils # (auto) 0.1 10 ^3/uL (0-0.2); Basophils % (auto) 0.3 % (0.0-2.0); Eosinophils # (auto) 0 10 ^3/uL (0-0.8); Hemoglobin 13.9 g/dL (12.2-16.2); Lymphocytes # (auto) 0.4 10 ^3/uL (0.4-5.4); Lymphocytes % (auto) 1.7 % (10.0-50.0); Mean Corpuscular Hemoglobin 27.6 pg (28.0-32.0); Mean Corpuscular Hgb Conc. 31.7 g/dL (32.0-36.0); Mean Corpuscular Volume 87.2 fL (80.0-100.0); Monocytes # (auto) 0.9 10 ^3/uL (0-1.3); Monocytes % (auto) 4.5 % (0.0-12.0); Neutrophils # (auto) 19.1 10 ^3/uL (1.6-8.6); Neutrophils % (auto) 93.5 % (37.0-80.0); Platelet Count (auto) 267 10^3/uL (140-450); Potassium 3.7 mmol/L (3.5-5.1); Red Blood Cells 5.04 10^6/uL (4.0-5.20); Red Cell Distribution Width 16.9 % (11.8-14.3); White Blood Cell 20.5 10^3/uL (4.4-10.8)
[2024-09-24 07:59] LABS: Alanine Aminotransferase 83 U/L (7-40); Alkaline Phosphatase 471 U/L (46-116); Aspartate Aminotransferase 397 U/L (13-40); Bilirubin, Total 1.8 mg/dL (0.2-1.0); Blood Urea Nitrogen 59 mg/dL (9-23); Calcium 10.8 mg/dL (8.7-10.4); Carbon Dioxide 17 mmol/L (20-31); Chloride 115 mmol/L (98-107); Glucose 55 mg/dL (74-106); Sodium 147 mmol/L (136-145); Total Protein 5.3 g/dL (5.7-8.2)
[2024-09-24 08:32] VITALS: BP 136/66; PULSE 89; RESP 16; TEMP 97.6
[2024-09-24] MEDS: cefTRIAXone 1GM/50ML D5W 50 ML IV SCH (09:56)
[2024-09-24] MEDS: AZITHROMYCIN 500MG/ 250ML 250 ML IV SCH (09:57)
[2024-09-24] MEDS: D5W/SOD CHL 0.45% 1,000 ML IV SCH (11:15)
--- NOTE | 2024-09-24 11:28 | DVHPN2 ---
Subjective SEEN AND EXAMINED AT BEDSIDE. PATIENT IS CONFUSED. SON THELMA AT BEDSIDE. HAD DETAILED DISCUSSION WITH THE SON. PATIENT HAS SOME MALIGNANCY WITH LIVER METS, UNSURE PRIMARY.PER THE SON THELMA AND JENNIFER PATIENT RECENTLY DISCUSSED WITH THE HER GOALS OF CARE AND HER WILL. SHE IS DNR/DNI. ACCORDING TO THE SONS, THE PATIENT KNEW "HER TIME IS COMING TO AN END" THEY WANT TO DISCUSS WITH HOSPICE FOR DC. Changes from previous H/P or p: No Changes Objective Vitals Vital Signs Date Time Temp Pulse Resp B/P (MAP) Pulse Ox O2 Delivery O2 Flow Rate FiO2 09/24/24 08:32 97.6 89 16 136/66 (89) 97.6 09/24/24 05:00 100 09/23/24 22:51 Nasal Cannula* 2 28 Intake/Output Intake and Output 09/24/24 07:00 Intake Total 2000 ml Output Total 500 ml Balance 1500 ml Intake Oral 0 ml IV Total 2000 ml Output Urine Total 500 ml Exam GEN: IN BED CONFUSED CVS: N S1/S2, RRR RESP: DIMINISHED ABD: SOFT INDEX EDITOR: CONFUSED Medications Current Medications Medications Dose Ordered Sig/Coy Route Start Time Stop Time Status Last Admin Dose Admin Azithromycin 250 ml @ 125 mls/hr DAILY IV 09/24/24 10:00 09/24/24 09:57 125 MLS/HR Ondansetron HCl 4 mg Q4HP PRN IV 09/23/24 16:15 Acetaminophen 650 mg Q6HP PRN PO 09/23/24 16:15 Dextrose/Sodium Chloride 1,000 ml @ 125 mls/hr Q8H IV 09/24/24 11:15 UNV Piperacillin Sod/ Tazobactam Sod 100 ml @ 25 mls/hr Q8HR IV 09/24/24 14:00 UNV Laboratory Results Laboratory Tests 09/24/24 06:42 Chemistry Test 09/24/24 06:42 Albumin 3.0 g/dL (3.2-4.8) L Calcium Level 10.8 mg/dL (8.7-10.4) H Total Protein 5.3 g/dL (5.7-8.2) L Lipid panel Test 09/23/24 13:37 Lipase 546 U/L (12-53) H LFT Test 09/24/24 06:42 Alanine Aminotransferase (ALT) 83 U/L (7-40) H Alkaline Phosphatase 471 U/L (46-116) H Aspartate Amino Transferase (AST) 397 U/L (13-40) H Total Bilirubin 1.8 mg/dL (0.2-1.0) H Urinalysis Test 09/23/24 00:00 Urine Color Yellow (Yellow) Urine Clarity Turbid (Clear) H Urine pH 5.0 (5.0-9.0) Urine Specific [place] 1.021 (1.001-1.035) Urine Protein 1+ (Negative) H Urine Ketones Negative (Negative) Urine Blood Trace /uL (Negative) H Urine Nitrite Negative (Negative) Urine Bilirubin 1+ (Negative) H Urine Urobilinogen 4 mg/dL (Negative) H Urine Leukocyte Esterase Negative /uL (Negative) Urine RBC 7 /hpf (0 - 4) Urine WBC 13 /hpf (0 - 5) Urine Squamous Epithelial Cells Few /hpf (<5) Urine Bacteria None seen /hpf (None Seen) Urine Hyaline Casts Many /lpf (0 - 2) Urine Mucus Few (None Seen) Urine Glucose Normal mg/dL (Normal) Microbiology Microbiology Date/Time Source Procedure Growth Status 09/23/24 10:45 Blood Blood Culture - Preliminary NO GROWTH AFTER 24 HOURS OF INCUBATION. Resulted Assessment/Plan Assessment/Plan Metabolic Encephalopathy Liver Mets, primary unknown Sepsis likely secondary to pneumonia IV Abx - Zosyn and azithromycin CHERYL due to VMN- IVF Proteinuria Transaminitis Goals of care >18 mins DNR/DNI Plan discussed with: Patient, Son My Orders Orders - DONNA NUÑEZ MD Procedure Category Date Status Time D5w/Sod Chl 0.45% PHA 09/24/24 Logged (D5w 1/2ns) 11:15 Afp Serum Tumor Marker LAB 09/24/24 Logged 11:15 Carcinoembryonic LAB 09/24/24 Logged Antigen 11:15 Carbohydrate Antigen LAB 09/24/24 Logged 19-9 11:15 Ca 125 (Serial) LAB 09/24/24 Logged 11:15 Piperacillin-Tazob PHA 09/24/24 Logged 3.375gm (Zosyn 3.375g 14:00 Osmolality, Serum LAB 09/24/24 Logged 11:15 Lactic Acid W/ Reflex LAB 09/24/24 Logged Order 11:15 Osmolality Urine LAB 09/24/24 Logged 11:15 Urine Sodium LAB 09/24/24 Logged 11:15 Comprehensive LAB 09/25/24 Verified Metabolic Panel 04:00 Complete Blood Count LAB 09/25/24 Verified 04:00 Lactic Acid W/ Reflex LAB 09/25/24 Verified Order 04:00 DNR ANDREA 09/24/24 In Process 11:20 Code Status CODE 09/24/24 Transmitted 11:20 * Executive Business Coach CONS 09/24/24 Transmitted Consult Creatine Kinase LAB 09/24/24 Transmitted 11:24 Date of Service: Sep 24, 2024 Billing Provider: DONNA NUÑEZ MD Common Visit Codes: [id number] INP/OBS CARE(HIGH) Secondary Visit Codes: [id number] CARE PLAN 30 MINUTES DONNA NUÑEZ MD Sep 24, 2024 11:28
[2024-09-24] MEDS: PIPERACILLIN-TAZOB 3.375GM 100 ML IV SCH (12:32)
[2024-09-24 12:38] VITALS: BP 141/70; PULSE 94; RESP 16; TEMP 98.3
[2024-09-24] MEDS: ENOXAPARIN SOD 30 MG/0.3 ML SYRINGE SC ONE (17:07)
[2024-09-24 17:17] VITALS: BP 118/60; PULSE 95; RESP 18; TEMP 98.4
[2024-09-24 20:30] VITALS: RESP 16
[2024-09-24 21:00] VITALS: BP 143/81; PULSE 91; RESP 19; TEMP 98; O2SAT 98
[2024-09-25] VITALS (7 sets, daily range): BP systolic 106–140; BP diastolic 59–75; PULSE 82–96; RESP 16–22; TEMP 98–98.6; O2SAT 92–98
[2024-09-25 07:13] LABS: Basophils # (auto) 0 10 ^3/uL (0-0.2); Basophils % (auto) 0.1 % (0.0-2.0); Eosinophils # (auto) 0 10 ^3/uL (0-0.8); Eosinophils % (auto) 0.2 % (0.0-7.0); Hematocrit 39.8 % (36.0-46.0); Hemoglobin 13.1 g/dL (12.2-16.2); Lymphocytes # (auto) 0.5 10 ^3/uL (0.4-5.4); Lymphocytes % (auto) 2.7 % (10.0-50.0); Mean Corpuscular Hemoglobin 28.5 pg (28.0-32.0); Mean Corpuscular Hgb Conc. 32.8 g/dL (32.0-36.0); Mean Corpuscular Volume 86.9 fL (80.0-100.0); Monocytes # (auto) 0.9 10 ^3/uL (0-1.3); Monocytes % (auto) 5.3 % (0.0-12.0); Neutrophils # (auto) 15.4 10 ^3/uL (1.6-8.6); Neutrophils % (auto) 91.7 % (37.0-80.0); Nucleated Red Blood Cells % 0.1 %; Platelet Count (auto) 230 10^3/uL (140-450); Red Blood Cells 4.58 10^6/uL (4.0-5.20); Red Cell Distribution Width 16.4 % (11.8-14.3); White Blood Cell 16.8 10^3/uL (4.4-10.8)
[2024-09-25 07:25] LABS: Albumin 3.2 g/dL (3.2-4.8); Anion Gap 13 (5-15); Glucose 85 mg/dL (74-106)
[2024-09-25 07:27] LABS: Lactic Acid w/Reflex 2.4 mmol/L (0.4-2.0)
[2024-09-25 07:33] LABS: Alanine Aminotransferase 79 U/L (7-40); Alkaline Phosphatase 457 U/L (46-116); Aspartate Aminotransferase 332 U/L (13-40); Bilirubin, Total 1.7 mg/dL (0.2-1.0); Blood Urea Nitrogen 41 mg/dL (9-23); Calcium 11.3 mg/dL (8.7-10.4); Carbon Dioxide 18 mmol/L (20-31); Chloride 118 mmol/L (98-107); Potassium 3.3 mmol/L (3.5-5.1); Sodium 149 mmol/L (136-145); Total Protein 5.7 g/dL (5.7-8.2)
[2024-09-25] MEDS: ENOXAPARIN SOD 30 MG/0.3 ML SYRINGE SC SCH (11:26)
--- NOTE | 2024-09-25 11:42 | DVHPN2 ---
Progress Note Date Seen: Sep 25, 2024 Medical Necessity Reason Pt with a Central, PICC or Fol: Yes The following are medically ne: Page Catheter Reason for page catheter: Strict I&O Subjective Patient reports: No new complaints Review of Systems: HEENT:Normal, CVS:Normal, RESPIRATORY:Normal, GI:Normal, :Normal, MSK:Normal, NEURO:Normal Objective vital signs Vital Sign Date Time Temp Pulse Resp B/P (MAP) Pulse Ox O2 Delivery O2 Flow Rate FiO2 09/25/24 09:00 98.0 92 22 116/64 (81) 96 98.0 09/24/24 20:30 Nasal Cannula* 2 28 Total Intake and Output 09/24/24 09/24/24 09/25/24 15:00 23:00 07:00 Intake Total 300 ml 0 ml 0 ml Output Total 950 ml 500 ml Balance 300 ml -950 ml -500 ml medications Current Medications Medications Dose Ordered Sig/Coy Route Start Time Stop Time Status Last Admin Dose Admin Azithromycin 250 ml @ 125 mls/hr DAILY IV 09/24/24 10:00 09/24/24 09:57 125 MLS/HR Ondansetron HCl 4 mg Q4HP PRN IV 09/23/24 16:15 Acetaminophen 650 mg Q6HP PRN PO 09/23/24 16:15 Dextrose/Sodium Chloride 1,000 ml @ 125 mls/hr Q8H IV 09/24/24 11:15 09/25/24 11:27 125 MLS/HR Piperacillin Sod/ Tazobactam Sod 100 ml @ 25 mls/hr Q12H IV 09/24/24 12:00 09/25/24 00:29 25 MLS/HR Enoxaparin Sodium 30 mg DAILY SC 09/25/24 10:00 09/25/24 11:26 30 MG Examination: GENERAL:Normal, HEENT:Normal, NECK:Normal, LUNGS:Normal, CVS:Normal, ABDOMEN:Normal, MSK:Normal, SKIN:Normal, NEURO:Normal, NEURO:Abnormal (agitated, confused), :Normal laboratory and microbiology Laboratory Tests 09/25/24 06:34 Test 09/25/24 06:34 Range/Units Serum Glucose 85 74-106 mg/dL Microbiology Date/Time Source Procedure Growth Status 09/23/24 10:45 Blood Blood Culture - Preliminary NO GROWTH AFTER 48 HOURS OF INCUBATION. Resulted Problem List/Assessment/Plan Problem List/Assessment/Plan #1 metastatic cancer- liver/lung #2 sepsis ?pneumonia- gram positive/neg: iv zosyn #3 liver failure/mets #4 acute renal failure - vasomotor nephropathy #5 h/o breast cancer long dw son Roel- wishes hospice/dnr status Plan discussed with: Patient, Son Date of Service: Sep 25, 2024 Billing Provider: ALFA IZQUIERDO MD Common Visit Codes: [id number] INP/OBS CARE(HIGH) Secondary Visit Codes: [id number] CARE PLAN 30 MINUTES ALFA IZQUIERDO MD Sep 25, 2024 11:42
[2024-09-25] MEDS: HALOPERIDOL LACTATE 5 MG/ML INJ VIAL IM ONE (12:49)
[2024-09-25] MEDS: D5W/SOD CHL 0.45% 1,000 ML IV SCH (12:54)
--- NOTE | 2024-09-25 23:31 | DVHINCON2 ---
Date of service: Sep 25, 2024 Referring Physician Sloan Reason for Consultation Elevated liver enzymes History of Present Illness Cherie Killian is a 78-year-old female with past medical history of hypertension, CVA, and liver disease who presents to the ED with ALOC. Patient was found down on the bedroom floor by ems at 10am, last known well time 3 days ago. However, patient reports that she was sitting in her living room talking to a friend before she blacked out. Patient states that she was sick recently. Patient denies chest pain, abdominal pain, shortness of breath, nausea, vomiting, diarrhea, fever, and chills. 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 Past Medical History Liver disease Breast cancer Past Surgical History Past Surgical History: Mastectomy Family History: Cerebrovascular accident (CVA) G8 FATHER FH: breast cancer G8 MOTHER FH: heart attack G8 FATHER Allergies: Coded Allergies: NO KNOWN ALLERGIES (Unverified , 09/23/24) Home Meds Reported Medications Hydrochlorothiazide (Hydrochlorothiazide) 12.5 Mg Cap, 12.5 MG PO DAILY for 30 Days, MG 09/24/24 Lisinopril (Lisinopril) 40 Mg Tab, 40 MG PO DAILY for 30 Days, MG 09/24/24 Amlodipine Besylate (Amlodipine Besylate) 5 Mg Tab, 10 MG PO DAILY for 30 Days, MG 09/24/24 Gemfibrozil (Gemfibrozil) 600 Mg Tab, 1 TAB PO BID, #60 TAB 5 Refills 09/24/24 Levothyroxine Sodium (Levothyroxine Sodium) 100 Mcg Tab, 100 MCG PO QAM for 30 Days, MCG 09/24/24 Current Medications Current Medications Medications (Trade) Dose Ordered Sig/Coy Route PRN Reason Start Time Stop Time Status Last Admin Enoxaparin Sodium (Lovenox) 30 mg DAILY SC 09/25/24 10:00 09/25/24 11:26 Dextrose/Sodium Chloride 1,000 ml @ 100 mls/hr Q10H IV 09/25/24 11:45 09/25/24 22:40 Lorazepam (Ativan Inj) 1 mg Q8HP PRN IV ANXIETY 09/25/24 11:45 Vital Signs Vital Signs Date Time Temp Pulse Resp B/P (MAP) Pulse Ox O2 Delivery O2 Flow Rate FiO2 09/25/24 21:00 98.2 92 17 140/65 (90) 98 98.2 09/25/24 08:00 Nasal Cannula* 2 28 Physical Exam General Appearance: Alert, Cooperative, No acute distress, Other (A&O x2 to person and date of ) HEENT: Atraumatic, PERRLA, EOMI, Mucous membr. moist/pink Respiratory: Normal air movement Cardiovascular: Regular rate, Normal S1, Normal S2, No murmurs Abdominal: Normal bowel sounds, Soft, No tenderness, No hepatospenomegaly, No masses Extremities: No clubbing, No edema, No tenderness/swelling Skin: No significant lesion Neuro: Sensation intact Psych/Mental Status: Mental status NL Labs/Diagnostic Data Labs Test 09/25/24 11:14 09/25/24 08:42 09/25/24 06:34 09/24/24 11:43 Range/Units POC Glucose 108 H 70-106 mg/dl Lactic Acid Level 2.2 *H 0.4-2.0 mmol/L White Blood Count 16.8 H 4.4-10.8 10^3/uL Red Blood Count 4.58 4.0-5.20 10^6/uL Hemoglobin 13.1 12.2-16.2 g/dL Hematocrit 39.8 36.0-46.0 % Mean Corpuscular Volume 86.9 80.0-100.0 fL Mean Corpuscular Hemoglobin 28.5 28.0-32.0 pg Mean Corpuscular Hemoglobin Concent 32.8 32.0-36.0 g/dL Red Cell Distribution Width 16.4 H 11.8-14.3 % Platelet Count 230 140-450 10^3/uL Mean Platelet Volume 9.0 6.9-10.8 fL Neutrophils (%) (Auto) 91.7 H 37.0-80.0 % Lymphocytes (%) (Auto) 2.7 L 10.0-50.0 % Monocytes (%) (Auto) 5.3 0.0-12.0 % Eosinophils (%) (Auto) 0.2 0.0-7.0 % Basophils (%) (Auto) 0.1 0.0-2.0 % Neutrophils # (Auto) 15.4 H 1.6-8.6 10 ^3/uL Lymphocytes # (Auto) 0.5 0.4-5.4 10 ^3/uL Monocytes # (Auto) 0.9 0-1.3 10 ^3/uL Eosinophils # (Auto) 0 0-0.8 10 ^3/uL Basophils # (Auto) 0 0-0.2 10 ^3/uL Nucleated Red Blood Cells 0.1 % Sodium Level 149 H 136-145 mmol/L Potassium Level 3.3 L 3.5-5.1 mmol/L Chloride Level 118 H 98-107 mmol/L Carbon Dioxide Level 18 L 20-31 mmol/L Anion Gap 13 5-15 Blood Urea Nitrogen 41 #H 9-23 mg/dL Creatinine 1.52 H 0.550-1.02 mg/dL Glomerular Filtration Rate Calc 35 >90 mL/min BUN/Creatinine Ratio 27.0 H 10.0-20.0 Serum Glucose 85 74-106 mg/dL Calcium Level 11.3 H 8.7-10.4 mg/dL Total Bilirubin 1.7 H 0.2-1.0 mg/dL Aspartate Amino Transferase (AST) 332 H 13-40 U/L Alanine Aminotransferase (ALT) 79 H 7-40 U/L Alkaline Phosphatase 457 H 46-116 U/L Total Protein 5.7 5.7-8.2 g/dL Albumin 3.2 3.2-4.8 g/dL Serum Osmolality 313 H 278-298 mOsm/kg Carcinoembryonic Antigen 100.00 <=5.0 ng/mL Thyroid Stimulating Hormone (TSH) 0.63 0.55-4.78 uIU/mL Test 09/24/24 06:42 09/23/24 13:37 09/23/24 10:45 09/23/24 00:00 Range/Units Creatine Kinase 492 H 34-145 U/L Lactate Dehydrogenase 2464 H 120-246 U/L Troponin I High Sensitivity 22 </=34 ng/L Lipase 546 H 12-53 U/L Prothrombin Time 13.4 H 9.3-11.8 sec Prothrombin Time INR 1.30 H 0.9-1.15 Activated Partial Thromboplast Time 28.6 24.5-34.5 SEC D-Dimer, Quantitative 7.12 H 0.0-0.49 mg/L FEU Magnesium Level 2.6 1.6-2.6 mg/dL Ammonia < 10 L 11-32 umol/L Beta-Hydroxybutyric Acid 2.376 H < 0.4 mmol/L Plasma/Serum Blood Alcohol < 3.0 <10 mg/dL Hepatitis A IgM Antibody Negative Hepatitis B Surface Antigen Negative Negative Hepatitis B Core IgM Antibody Negative Negative Hepatitis C Antibody Negative Negative Urine Color Yellow Yellow Urine Clarity Turbid H Clear Urine pH 5.0 5.0-9.0 Urine Specific [place] 1.021 1.001-1.035 Urine Protein 1+ H Negative Urine Ketones Negative Negative Urine Blood Trace H Negative /uL Urine Nitrite Negative Negative Urine Bilirubin 1+ H Negative Urine Urobilinogen 4 H Negative mg/dL Urine Leukocyte Esterase Negative Negative /uL Urine RBC 7 0 - 4 /hpf Urine WBC 13 0 - 5 /hpf Urine Squamous Epithelial Cells Few <5 /hpf Urine Bacteria None seen None Seen /hpf Urine Hyaline Casts Many 0 - 2 /lpf Urine Mucus Few None Seen Urine Glucose Normal Normal mg/dL Urine Opiates Screen Neg NEGATIVE Urine Fentanyl Screen Neg NEGATIVE Urine Barbiturates Screen Neg NEGATIVE Urine Phencyclidine Screen Neg NEGATIVE Urine Amphetamines Screen Neg NEGATIVE Urine Benzodiazepines Screen Neg NEGATIVE Urine Cocaine Screen Neg NEGATIVE Urine Cannabinoids Screen Neg NEGATIVE Microbiology Date/Time Source Procedure Growth Status 09/23/24 10:45 Blood Blood Culture - Preliminary NO GROWTH AFTER 48 HOURS OF INCUBATION. Resulted Problems(with codes): (1) Metastases to the liver (2) Pancreatitis (3) Lactic acidosis (4) Elevated liver enzymes Plan/Recommendation Plan Patient has a evidence of metastatic disease to the liver and carinal area Elevated liver enzymes which are trending down is a likely related to the above Patient may also have reactive elevation liver enzymes due to sepsis along with hypoxic liver injury Patient was on IV antibiotics Continue to monitor labs Hepatitis panel negative Notified by nurse the patient is being evaluated Plan discussed with: Other (Dr Hidalgo) ESTHELA CORTES MD Sep 25, 2024 23:31
[2024-09-26 01:00] VITALS: BP 136/67; PULSE 92; RESP 17; TEMP 98.1; O2SAT 96
[2024-09-26 05:00] VITALS: BP 127/93; PULSE 90; RESP 19; TEMP 97.5; O2SAT 98
[2024-09-26 08:00] VITALS: RESP 16
[2024-09-26 08:06] LABS: AFP Serum Tumor Marker 2.1 ng/mL (0.0-9.2)
[2024-09-26 09:06] LABS: Carbohydrate Antigen 19-9 9101 U/mL (0-35)
[2024-09-26 09:17] VITALS: BP 145/79; PULSE 89; RESP 19; TEMP 97.9; O2SAT 96
--- NOTE | 2024-09-26 10:23 | DVHDS2 ---
Discharge Summary Date of Admission Sep 23, 2024 at 16:44 Date of Discharge: Sep 26, 2024 Labs/Diagnostic Data: Laboratory Results Test 09/25/24 11:14 09/25/24 08:42 09/25/24 06:34 09/24/24 11:43 POC Glucose 108 mg/dl (70-106) Lactic Acid Level 2.2 mmol/L (0.4-2.0) White Blood Count 16.8 10^3/uL (4.4-10.8) Red Blood Count 4.58 10^6/uL (4.0-5.20) Hemoglobin 13.1 g/dL (12.2-16.2) Hematocrit 39.8 % (36.0-46.0) Mean Corpuscular Volume 86.9 fL (80.0-100.0) Mean Corpuscular Hemoglobin 28.5 pg (28.0-32.0) Mean Corpuscular Hemoglobin Concent 32.8 g/dL (32.0-36.0) Red Cell Distribution Width 16.4 % (11.8-14.3) Platelet Count 230 10^3/uL (140-450) Mean Platelet Volume 9.0 fL (6.9-10.8) Neutrophils (%) (Auto) 91.7 % (37.0-80.0) Lymphocytes (%) (Auto) 2.7 % (10.0-50.0) Monocytes (%) (Auto) 5.3 % (0.0-12.0) Eosinophils (%) (Auto) 0.2 % (0.0-7.0) Basophils (%) (Auto) 0.1 % (0.0-2.0) Neutrophils # (Auto) 15.4 10 ^3/uL (1.6-8.6) Lymphocytes # (Auto) 0.5 10 ^3/uL (0.4-5.4) Monocytes # (Auto) 0.9 10 ^3/uL (0-1.3) Eosinophils # (Auto) 0 10 ^3/uL (0-0.8) Basophils # (Auto) 0 10 ^3/uL (0-0.2) Nucleated Red Blood Cells 0.1 % Sodium Level 149 mmol/L (136-145) Potassium Level 3.3 mmol/L (3.5-5.1) Chloride Level 118 mmol/L (98-107) Carbon Dioxide Level 18 mmol/L (20-31) Anion Gap 13 (5-15) Blood Urea Nitrogen 41 mg/dL (9-23) Creatinine 1.52 mg/dL (0.550-1.02) Glomerular Filtration Rate Calc 35 mL/min (>90) BUN/Creatinine Ratio 27.0 (10.0-20.0) Serum Glucose 85 mg/dL (74-106) Calcium Level 11.3 mg/dL (8.7-10.4) Total Bilirubin 1.7 mg/dL (0.2-1.0) Aspartate Amino Transferase (AST) 332 U/L (13-40) Alanine Aminotransferase (ALT) 79 U/L (7-40) Alkaline Phosphatase 457 U/L (46-116) Total Protein 5.7 g/dL (5.7-8.2) Albumin 3.2 g/dL (3.2-4.8) Serum Osmolality 313 mOsm/kg (278-298) Tumor Marker Alpha Fetoprotein 2.1 ng/mL (0.0-9.2) Carcinoembryonic Antigen 100.00 ng/mL (<=5.0) CA 19-9 Antigen 9101 U/mL (0-35) CA 125 Antigen 290.0 U/mL (0.0-38.1) Thyroid Stimulating Hormone (TSH) 0.63 uIU/mL (0.55-4.78) Test 09/24/24 06:42 09/23/24 13:37 09/23/24 10:45 09/23/24 00:00 Creatine Kinase 492 U/L (34-145) Lactate Dehydrogenase 2464 U/L (120-246) Troponin I High Sensitivity 22 ng/L (</=34) Lipase 546 U/L (12-53) Prothrombin Time 13.4 sec (9.3-11.8) Prothrombin Time INR 1.30 (0.9-1.15) Activated Partial Thromboplast Time 28.6 SEC (24.5-34.5) D-Dimer, Quantitative 7.12 mg/L FEU (0.0-0.49) Magnesium Level 2.6 mg/dL (1.6-2.6) Ammonia < 10 umol/L (11-32) Beta-Hydroxybutyric Acid 2.376 mmol/L (< 0.4) Plasma/Serum Blood Alcohol < 3.0 mg/dL (<10) Hepatitis A IgM Antibody Negative Hepatitis B Surface Antigen Negative (Negative) Hepatitis B Core IgM Antibody Negative (Negative) Hepatitis C Antibody Negative (Negative) Urine Color Yellow (Yellow) Urine Clarity Turbid (Clear) Urine pH 5.0 (5.0-9.0) Urine Specific [place] 1.021 (1.001-1.035) Urine Protein 1+ (Negative) Urine Ketones Negative (Negative) Urine Blood Trace /uL (Negative) Urine Nitrite Negative (Negative) Urine Bilirubin 1+ (Negative) Urine Urobilinogen 4 mg/dL (Negative) Urine Leukocyte Esterase Negative /uL (Negative) Urine RBC 7 /hpf (0 - 4) Urine WBC 13 /hpf (0 - 5) Urine Squamous Epithelial Cells Few /hpf (<5) Urine Bacteria None seen /hpf (None Seen) Urine Hyaline Casts Many /lpf (0 - 2) Urine Mucus Few (None Seen) Urine Glucose Normal mg/dL (Normal) Urine Opiates Screen Neg (NEGATIVE) Urine Fentanyl Screen Neg (NEGATIVE) Urine Barbiturates Screen Neg (NEGATIVE) Urine Phencyclidine Screen Neg (NEGATIVE) Urine Amphetamines Screen Neg (NEGATIVE) Urine Benzodiazepines Screen Neg (NEGATIVE) Urine Cocaine Screen Neg (NEGATIVE) Urine Cannabinoids Screen Neg (NEGATIVE) Other Laboratory Tests 09/25/24 06:34 Brief Hx & Hospital Course: SEE DICTATED NOTE Condition at Discharge: Poor Final Diagnosis/Problems List METS CANCER Discharge Disposition: Hospice - Home Discharge Instruct/Medications Diet: Regular Activity: No Restrictions, As Tolerated Follow Up/Referral: FU WITH HOSPICE Medications: PER HOSPICE LEAVE HARRE[place] IN Discharge Statement: "Patient was advised to return to the ER or call 911 if any headaches, dizziness, shortness of breath, chest pain, abdominal pain, bleeding, fevers, or worsening of medical condition. Patient was counseled about treatment plan, medications, possible side effects, patientverbalized understanding. All questions were answered to the best of my ability. This discharge took greater then 30 minutes in planning, reviewing documentation, counseling the patient, and discussing with other team members." ASSESSMENT ASSESSMENT Assessment METS CANCER Date of Service: Sep 26, 2024 Billing Provider: ALFA IZQUIERDO MD Common Visit Codes: 16354-[id number]/OBS DISCH DAY >30min ALFA IZQUIERDO MD Sep 26, 2024 10:23
[2024-09-26] MEDS: LORazepam 2MG/ML-1ML VIAL IV PRN (10:58)
--- NOTE | 2024-09-26 11:06 | DVHDS ---
DATE OF DISCHARGE: 09/26/2024 HISTORY OF PRESENT ILLNESS: The patient is a 78-year-old female who was admitted with history of altered level of consciousness and has history of hypertension and previous breast cancer and liver disease. HOSPITAL COURSE: The patient had a CT of the head that showed a 6 cm calcification in the right frontal lobe posteriorly. The patient had a CT angiography that was negative for PE, but showed an infiltrate in the left lower lung field, consolidated soft tissue mass extending into the left hilum and multiple masses in the liver consistent with metastatic disease. The patient had an elevated white count of 22,000. The patient also had evidence of liver failure, hypercalcemia as well as acute renal failure. The patient will now be discharged on hospice as per family wishes. FINAL DIAGNOSES: Therefore, * Metastatic cancer in the liver, likely in the lung. * Sepsis with questionable pneumonia, questionable aspiration. * Acute liver failure. * Hypercalcemia. * Acute renal failure, questionable vasomotor nephropathy. * History of breast cancer. * DNR/hospice status. Time spent in discharge planning and review of plan with the patient, family and nursing was 39 minutes. MD LILIBETH Asif/PAULINA/RABIA TID: [id number] RECEIPT: [id number]
[2024-09-26 12:26] VITALS: BP 149/80; PULSE 93; RESP 20; TEMP 98.2; O2SAT 96
[2024-09-26 14:35] VITALS: BP 149/80; PULSE 93; RESP 16; TEMP 36.8; O2SAT 96
== END 2024-09-26 15:45 | disposition hospice, home (50) | DRG 871 ==
LOC: ER 10:02 → EDBD 10:02 → OVERFLOW 16:44 → WEST WING 22:36
PROVIDERS: ATTEND Internal Medicine
DX: A41.9 Sepsis, unspecified organism (principal); G93.41 Metabolic encephalopathy; K72.00 Acute and subacute hepatic failure without coma; N17.0 Acute kidney failure with tubular necrosis; J69.0 Pneumonitis due to inhalation of food and vomit; C78.7 Secondary malignant neoplasm of liver and intrahepatic bile duct; E87.20 Acidosis, unspecified; C78.02 Secondary malignant neoplasm of left lung; Z51.5 Encounter for palliative care; Z66 Do not resuscitate; I10 Essential (primary) hypertension; E83.52 Hypercalcemia; Z86.73 Personal history of transient ischemic attack (TIA), and cerebral infarction without residual deficits; Z82.49 Family history of ischemic heart disease and other diseases of the circulatory system; Z80.3 Family history of malignant neoplasm of breast; Z82.3 Family history of stroke; Z85.3 Personal history of malignant neoplasm of breast
CPT/HCPCS: 36415; 70450; 71045; 71275; 80053; 80074; 80307; 80320; 81001; 82010; 82105; 82140; 82378; 82550; 82962; 83605; 83615; 83690; 83735; 83930; 84443; 84484; 85025; 85379; 85610; 85730; 86301; 86304; 87040; 93005; 93970; 96365; G0378; J2543